=== PATIENT | female | born 1935 | race Caucasian/White ===

== ENCOUNTER → 2022-08-21 14:21 | Outpatient (BNVA) | payer MEDICARE, SELFPAY | PROVIDERS: PCP Family Medicine; Visit Provider Nurse Practitioner Family | DX: I12.9 Hypertensive chronic kidney disease with stage 1 through stage 4 chronic kidney disease, or unspecified chronic kidney disease (principal); N18.30 Chronic kidney disease, stage 3 unspecified; G30.9 Alzheimer's disease, unspecified; F01.50 Vascular dementia, unspecified severity, without behavioral disturbance, psychotic disturbance, mood disturbance, and anxiety; F02.80 Dementia in other diseases classified elsewhere, unspecified severity, without behavioral disturbance, psychotic disturbance, mood disturbance, and anxiety; F32.A Depression, unspecified; Z87.891 Personal history of nicotine dependence; R15.9 Full incontinence of feces | CPT/HCPCS: 99212 ==

== ENCOUNTER 2023-03-05 14:08 | Outpatient (AMB) | payer MEDICARE, SELFPAY ==
--- NOTE | 2023-03-05 14:31 | MHC.OFFVIS ---
Intake Vital Signs 03/05/23 14:45 Height 5 ft 5 in Weight 132 lb 2 oz BMI 22.0 BP 116/64 Blood Pressure Location Rt brachial Position Sitting Respiration 15 Pulse 71 Pulse Oximetry (%) 96 Oxygen Delivery Method Room Air Intake Visit Reasons: 4m follow up volume loss/memory loss-LVM Intake Note: Pt presents to office for 4 month follow up memory loss. Pt is her with daughter Svetlana, who is her historian. She reports pt's short term memory is declining. Pt had a fall about 5 weeks ago where she broke left hand. She forgets to use her walker which is necessary for steady gait. Daughter has placed sticky notes all over the house a reminders for pt. Allergies No Known Allergies Allergy (Verified 03/05/23 14:41) Medication List - Last Reconciled 03/05/23 by GINNA Childress acetaminophen 500 mg PO Q6H PRN alendronate mg PO atorvastatin 10 mg PO DAILY cholecalciferol (vitamin D3) (Vitamin D3) 25 mcg PO DAILY cyanocobalamin (vitamin B-12) 500 mcg PO DAILY donepezil 10 mg PO BEDTIME 30 days escitalopram oxalate 10 mg PO DAILY folic acid 1 mg PO DAILY levothyroxine 75 mcg PO DAILY losartan 50 mg PO DAILY HPI HPI Comments History of Present Illness Details 87-yr-old female presents for f/u visit, accompanied by her dtr. Pt reports she had a recent fall w/ a left forearm fx. This is now healed. She continues to have STM lapses. For instance, she cannot tell me how how left arm fx was treated (casted x's 4 weeks), walks outside w/o her walker, overfeeds her dtr's dogs. Dtr puts up notes to remind pt. 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 Has a call into [facility]. She did stop Donepazil. Recently stopped wine intake. Her GI s/s have improved- may have some occassional GI s/s. [facility] Medical History (Updated 03/05/23 @ 15:16 by GINNA Childress) Vitamin D deficiency HTN (hypertension) CKD (chronic kidney disease) stage 3, GFR 30-59 ml/min Left sided sciatica COVID-19 virus infection Transaminitis Basal cell carcinoma Osteoporosis Surgical History (Updated 03/05/23 @ 15:16 by GINNA Childress) H/O bilateral cataract extraction H/O: hysterectomy Hx of tonsillectomy Family History Mother Osteoporosis Brother Pancreatic cancer Sister Lewy body disease Father Hypertension Social History Alcohol intake: current Alcohol type: wine Patient Tobacco Use Status: Former Tobacco user Quit Date: 2011 Review of Systems Const All systems reviewed & are unremarkable except as noted in HPI and below Physical Exam Vital Signs: Last Vital Signs Pulse 71 03/05/23 14:45 Resp 15 03/05/23 14:45 BP 116/64 03/05/23 14:45 Pulse Ox 96 03/05/23 14:45 Oxygen Delivery Method Room Air 03/05/23 14:45 BMI result Body Mass Index 22.0 Const General: cooperative and no acute distress HEENT Head: Yes normocephalic Resp Effort & Inspection: normal respiratory effort and able to speak in complete sentences Neuro Other: Alert, oriented to person, place. Responds appropriately. Some STM lapses. Stands slowly, stooped, steady gait with walker. General: CN's II-XI intact bilaterally Cognition (Neuro): normal cognition Motor exam (neuro): 5/5 motor strength present throughout Psych Appearance: grossly normal Mental Status: mental status grossly normal Speech and movement: Normal speech and movement present Affect: normal affect Attitude: cooperative Thought process: Normal thought process present Thought content: Normal thought content present Insight: Good insight present (Psych) Judgement: Good judgement present (Psych) Assessment & Plan Assessment & Plan (1) Mixed Alzheimer's and vascular dementia: Comment: mild-moderate Code(s): G30.9 - Alzheimer's disease, unspecified; F01.50 - Vascular dementia, unspecified severity, without behavioral disturbance, psychotic disturbance, mood disturbance, and anxiety; F02.80 - Dementia in other diseases classified elsewhere, unspecified severity, without behavioral disturbance, psychotic disturbance, mood disturbance, and anxiety (2) Bowel incontinence: Comment: improved off Donepazil Code(s): R15.9 - Full incontinence of feces Plan Donepazil stopped. Trial Namenda XR 7mg qd. Monitor GI s/s. Concur w/ alcohol cessation. Consider day program. Walk w/ walker at all times when outside. Continue supportive care. f/u in 3-4 months or sooner prn. Medications: New memantine 7 mg PO DAILY 30 days 30 ea 3RF Coding Level of Care Code Est Pt Level 4 (28975) Diagnoses Mixed Alzheimer's and vascular dementia G30.9; F01.50; F02.80 Bowel incontinence R15.9
[2023-03-05 14:45] VITALS: BP 116/64; PULSE 71; RESP 15; O2SAT 96; BMI 22.0
== END 2023-03-05 15:07 | disposition home or self-care (01) ==
PROVIDERS: Visit Provider Nurse Practitioner Family
DX: G30.9 Alzheimer's disease, unspecified (principal); F01.50 Vascular dementia, unspecified severity, without behavioral disturbance, psychotic disturbance, mood disturbance, and anxiety; F02.80 Dementia in other diseases classified elsewhere, unspecified severity, without behavioral disturbance, psychotic disturbance, mood disturbance, and anxiety; R15.9 Full incontinence of feces
CPT/HCPCS: 99214

== ENCOUNTER → 2023-03-05 14:08 | Outpatient (BNVA) | payer MEDICARE, SELFPAY | PROVIDERS: Visit Provider Nurse Practitioner Family | DX: G30.9 Alzheimer's disease, unspecified (principal); F01.50 Vascular dementia, unspecified severity, without behavioral disturbance, psychotic disturbance, mood disturbance, and anxiety; F02.80 Dementia in other diseases classified elsewhere, unspecified severity, without behavioral disturbance, psychotic disturbance, mood disturbance, and anxiety; R15.9 Full incontinence of feces | CPT/HCPCS: 99212 ==